=== PATIENT | male | born 1980 | race Caucasian/White ===

== ENCOUNTER 2018-07-03 06:03 | Emergency (ER) | payer OTHER ==
[2018-07-03] MEDS ORDERED: ONDANSETRON ODT 4 MG TABLET TL STA (06:19)
[2018-07-03] MEDS ORDERED: ALBUTEROL NEB 2.5 MG/3 ML INH STA (06:19)
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
[2018-07-03 06:40] LABS: BASOPHILS # (AUTO) 0.1 10^3/uL (0.0-0.1); BASOPHILS % (AUTO) 0.6 %; EOSINOPHILS # (AUTO) 0.3 10^3/uL (0.0-0.7); EOSINOPHILS % (AUTO) 3.7 %; HGB - HEMOGLOBIN 13.6 g/dL (14.0-18.0); LYMPHOCYTES # (AUTO) 1.2 10^3/uL (1.5-3.5); LYMPHOCYTES % (AUTO) 12.6 %; MEAN CORPUSCULAR HEMOGLOBIN 29.7 pg (27.0-31.0); MEAN CORPUSCULAR HGB CONC 33.6 g/dL (32.0-36.0); MEAN CORPUSCULAR VOLUME 88.4 fL (80.0-94.0); MEAN PLATELET VOLUME 7.5 fL (7.4-11.4); MONOCYTES # (AUTO) 1.1 10^3/uL (0.0-1.0); MONOCYTES % (AUTO) 11.5 %; NEUTROPHILS # (AUTO) 6.6 10^3/uL (1.5-6.6); NEUTROPHILS % (AUTO) 71.6 %; PLT - PLATELET COUNT 254 10^3/uL (130-450); RED BLOOD COUNT 4.58 10^6/uL (4.70-6.10); RED CELL DISTRIBUTION WIDTH 13.2 % (12.0-15.0); WHITE BLOOD COUNT 9.3 x10^3/uL (4.8-10.8)
--- NOTE | 2018-07-03 06:44 | XRAY Report ---
Procedure Date: 07/03/2018 Accession Number: [id number] / [id number] Procedure: XR - Chest 1 View X-Ray CPT Code: 55469 FULL RESULT: EXAM: CHEST RADIOGRAPHY EXAM DATE: 07/03/2018 06:29 AM. CLINICAL HISTORY: Cough, chills. COMPARISON: None. TECHNIQUE: 1 view. FINDINGS: Lungs/Pleura: No alveolar consolidation or pleural effusion seen. No pneumothorax. Mediastinum: Within exam limitations, the cardiomediastinal contour is normal. Other: None. IMPRESSION: 1. No acute abnormalities seen in the chest. [facility]
[2018-07-03 06:51] LABS: ALBUMIN 3.9 g/dL (3.2-5.5); ALBUMIN/GLOBULIN RATIO 1.1 (1.0-2.2); BILIRUBIN,TOTAL 0.3 mg/dL (0.2-1.0); CALCIUM 8.8 mg/dL (8.5-10.3); CREATININE 0.7 mg/dL (0.6-1.2); TOTAL PROTEIN 7.5 g/dL (6.7-8.2)
[2018-07-03 07:16] VITALS: BP 139/80
== END 2018-07-03 07:16 | disposition home or self-care (01) ==
LOC: ED 06:03
DX: J98.8 Other specified respiratory disorders (principal)
CPT/HCPCS: 36415; 71045; 80053; 83690; 85025; 94640; 99283; Q0162

== ENCOUNTER 2018-07-12 09:49 | Emergency (ER) | payer OTHER ==
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
[2018-07-12] MEDS ORDERED: IBUPROFEN 800 MG TABLET PO STA (10:24)
--- NOTE | 2018-07-12 11:26 | XRAY Report ---
Reason: Low back pain after fall and tumble while running. Procedure Date: 07/12/2018 Accession Number: [id number] / [id number] Procedure: XR - Lumbar Spine 2 View CPT Code: FULL RESULT: EXAM: LUMBOSACRAL SPINE RADIOGRAPHY EXAM DATE: 07/12/2018 10:37 AM. CLINICAL HISTORY: Low back pain after fall and tumble while running. COMPARISONS: None. TECHNIQUE: 2 views. FINDINGS: Alignment: Normal. No spondylolisthesis or scoliosis. Bones: Five [id number] lumbar vertebral bodies are present. No fractures or bone lesions. Disks: Normal. Disk heights are maintained. Facets: No degenerative changes. Sacroiliac Joints: Unremarkable. Soft Tissues: Normal. The visualized bowel gas pattern is normal. IMPRESSION: Normal lumbar spine radiography. [facility]
[2018-07-12 11:50] VITALS: BP 116/85
== END 2018-07-12 11:48 | disposition home or self-care (01) ==
LOC: ED 09:49
DX: M54.5 Low back pain (principal); Z91.81 History of falling
CPT/HCPCS: 72100; 99283; A9270